=== PATIENT | female | born 1940 | race Caucasian/White ===

== ENCOUNTER 2024-09-19 15:30 | Emergency (ER) | payer OTHER, BC, SELFPAY ==
--- NOTE | ~2024-09-19 | XR_ITS ---
EXAMINATION: XR HAND, RIGHT CLINICAL INFORMATION: Pain, swelling COMPARISON: None available. TECHNIQUE: PA, lateral, and oblique views of the right hand. FINDINGS: The bones and soft tissues are normal. No fracture. Mild subluxation at the first metacarpal-phalangeal joint. Joint spaces are maintained. No erosions or soft tissue calcifications. XR/XR hand RT min 3V IMPRESSION: Mild subluxation at the first metacarpal-phalangeal joint , possibly chronic. Electronically signed by: Haydee Hand MD 09/19/2024 06:20 PM EDT
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
[2024-09-19 15:57] VITALS: BP 164/57; BP 174/88; PULSE 70; PULSE 72; RESP 18; TEMP 36.7; O2SAT 98; BMI 30.7
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
[2024-09-19 19:03] VITALS: BP 172/59; PULSE 70; RESP 16; TEMP 36.6; O2SAT 98
[2024-09-19 19:18] VITALS: BP 172/59; PULSE 70; RESP 16; TEMP 36.6; O2SAT 98
== END 2024-09-19 19:19 | disposition home or self-care (01) ==
PROVIDERS: Emergency Provider Emergency Medicine; PCP Internal Medicine
DX: S60.221A Contusion of right hand, initial encounter (principal); T14.8XXA Other injury of unspecified body region, initial encounter; V43.52XA Car driver injured in collision with other type car in traffic accident, initial encounter; Y93.9 Activity, unspecified; Y92.9 Unspecified place or not applicable; Y99.9 Unspecified external cause status; M54.2 Cervicalgia
CPT/HCPCS: 70450; 72125; 73130; 99284